=== PATIENT | male | born 1960 | race Caucasian/White ===

== ENCOUNTER 2020-04-19 16:26 | Emergency (ER) | payer SELFPAY ==
[~2020-04-19] VITALS: Ht 175.3 cm; Wt 113.4 kg
[2020-04-19] MEDS ORDERED: AMIODARONE HCL (50 MG/ ML) 3 ML VIAL IV ONE (16:27)
[2020-04-19] MEDS ORDERED: SODIUM BICARBONATE 8.4% INJ 50ML SYRINGE IV ONE (16:27)
[2020-04-19] MEDS ORDERED: EPINEPHrine HCL 1 MG/10 ML SYRG IV ONE (16:27)
[2020-04-19] MEDS ORDERED: CALCIUM CHLOR(10%) 100MG/ML 10ML SYRINGE IV ONE (16:27)
[2020-04-19 16:32] VITALS: BP 0/0
== END 2020-04-19 21:55 ==
LOC: EDBD 16:26 → EDAGE 16:26 → ER 16:26
DX: I46.9 Cardiac arrest, cause unspecified (principal); J96.01 Acute respiratory failure with hypoxia
CPT/HCPCS: 31500; 32551; 71045; 92950; 99285; J0171; J0282